=== PATIENT | male | born 1945 | race Caucasian/White ===

== ENCOUNTER → 2016-12-01 | Outpatient (CLI) | payer MEDICARE ==
[~2016-12-01] MED LIST: AMPI500C9 PO; ASPI-999 PO; DOXA1TAB2 PO; LISI1TAB10 PO; LOVA20TA2 PO; METF500T4 PO; METO-272 PO; NITR0.4T SL; OMEP40CA36 PO
--- NOTE | 2016-12-03 07:00 | ECHOCARDIOGRAPHY REPORT ---
DATE OF SERVICE: 12/01/2016 PROCEDURE: ECHOCARDIOGRAM CLINICAL DIAGNOSES: Shortness of breath, coronary artery disease, diabetes type 2. MEASUREMENTS: Left atrium 4.4 Aortic root 3.2 LV diameter, diastolic, 5 IVS thickness, diastolic, 0.9 LVPW thickness, diastolic, 0.8 DESCRIPTION: Two-dimensional echocardiography shows normal global left ventricular systolic function with an ejection fraction of approximately 60%. Aortic, mitral and tricuspid valve leaflets show good leaflet excursion. There is mild to moderate aortic valve sclerosis and calcification. There is no significant pericardial effusion. Doppler imaging shows mild tricuspid regurgitation. Pulmonary artery systolic pressure is estimated to be approximately 45 mmHg. Doppler imaging shows mild mitral regurgitation as well. There is no Doppler evidence of any significant valvular stenosis. There is no evidence of any significant intracardiac shunt on this transthoracic echocardiographic study. The inferior vena cava appears mildly enlarged, but does exhibit inspiratory collapse. CONCLUSIONS: 1. Normal global systolic function with ejection fraction approximately 60%. 2. Mild mitral and tricuspid regurgitation. 3. Aortic valve sclerosis without significant aortic stenosis. 4. Pulmonary artery systolic pressure is estimated to be approximately 45 mmHg. Job ID: [id number] DocumentID: [id number] Dictated Date: 12/02/2016 17:29:39 Motion Picture Photographer Date: 12/02/2016 20:07:33 Dictated By: MRAIANN BURGESS MD, MA, FACP, FACC,
== END ==
LOC: RAD 14:37
PROVIDERS: ATTEND Internal Medicine Cardiovascular Disease
DX: I73.9 Peripheral vascular disease, unspecified (principal); R06.02 Shortness of breath; I25.10 Atherosclerotic heart disease of native coronary artery without angina pectoris; Z72.0 Tobacco use; E11.9 Type 2 diabetes mellitus without complications; E78.4 Other hyperlipidemia; I10 Essential (primary) hypertension
CPT/HCPCS: 93306; 93923

== ENCOUNTER → 2017-04-21 | Outpatient (CLI) | payer MEDICARE ==
[~2017-04-21] MED LIST changes: -METO-272 PO; +METO-370 PO; +RT-ALBUTEROL SULF 2.5 MG/3 ML PRE-MIX VIAL IH ONE; +RT-ALBUTEROL SULF 2.5 MG/3 ML PRE-MIX VIAL ONE
== END ==
LOC: RT 07:54
PROVIDERS: ATTEND Nurse Practitioner Family
DX: R06.02 Shortness of breath (principal); I27.2 Other secondary pulmonary hypertension; F17.200 Nicotine dependence, unspecified, uncomplicated
CPT/HCPCS: 94060; 94640; 94726; 94729

== ENCOUNTER 2017-04-23 20:30 | Outpatient (CLI) | payer MEDICARE ==
[~2017-04-23 20:30] MED LIST changes: +METO-272 PO; -METO-370 PO; -RT-ALBUTEROL SULF 2.5 MG/3 ML PRE-MIX VIAL IH ONE; -RT-ALBUTEROL SULF 2.5 MG/3 ML PRE-MIX VIAL ONE
== END 2017-04-24 05:37 | disposition home or self-care (01) ==
LOC: SLEEP 20:30
PROVIDERS: ATTEND Nurse Practitioner Family
DX: G47.33 Obstructive sleep apnea (adult) (pediatric) (principal); G47.10 Hypersomnia, unspecified; G47.61 Periodic limb movement disorder; I47.9 Paroxysmal tachycardia, unspecified
CPT/HCPCS: 95810

== ENCOUNTER → 2017-08-25 | Outpatient (CLI) | payer MEDICARE ==
[~2017-08-25] MED LIST changes: -METO-272 PO; +METO-370 PO
[2017-08-25 11:20] LABS: ALANINE AMINOTRANSFERASE 27 U/L (0-55); ALKALINE PHOSPHATASE 62 U/L (40-136); BILIRUBIN,TOTAL 0.4 MG/DL (0.1-1.0); BUN/CREATININE RATIO 23; CALCIUM 9.2 MG/DL (8.5-10.1); CARBON DIOXIDE 25 MMOL/L (21-32); CHLORIDE 102 MMOL/L (98-107); CHOLESTEROL 162 MG/DL (< 200); GFR ESTIMATED > 60; GLUCOSE 131 MG/DL (70-105); HDL CHOLESTEROL 37 MG/DL (40-60); POTASSIUM 4.2 MMOL/L (3.6-5.0); SODIUM 138 MMOL/L (135-145); TOTAL PROTEIN 7.2 GM/DL (6.4-8.2); TRIGLYCERIDES 234 MG/DL (<150); VLDL CHOLESTEROL 47 MG/DL (5-40)
== END ==
LOC: LAB 10:39
PROVIDERS: ATTEND Nurse Practitioner Family
DX: I25.10 Atherosclerotic heart disease of native coronary artery without angina pectoris (principal); E78.4 Other hyperlipidemia; I10 Essential (primary) hypertension; I73.89 Other specified peripheral vascular diseases; G47.33 Obstructive sleep apnea (adult) (pediatric)
CPT/HCPCS: 36415; 80053; 80061

== ENCOUNTER → 2017-10-27 | Outpatient (CLI) | payer MEDICARE ==
--- NOTE | 2017-10-27 11:12 | Diagnostic Imaging Report ---
Procedure: Low-dose lung cancer screening. Indication: [id number] smoking history. Findings: Routine images of the thorax were performed using the low-dose lung cancer screening protocol. There are no previous studies available for comparison. There is no parenchymal lung nodule identified. There is a faint patchy alveolar/interstitial infiltrate in the right upper lobe. I suspect this finding is more likely due to chronic pulmonary disease than to pneumonia/atelectasis. Even so, clinical followup is recommended. The heart size is within normal limits. Coronary calcifications are evident. The aorta is not abnormally dilated. There is no obvious mediastinal or hilar adenopathy. The thyroid gland was visualized as unremarkable. The sections through the upper abdomen fail to show any sign of an acute abnormality. The bone windows show no evidence for a fracture or for destructive lesion. Impression: 1. There is no parenchymal lung nodule identified. A followup low-dose lung cancer screening study in one year would be recommended for further study. 2. The vague alveolar/interstitial infiltrate in the right upper lung may well be chronic in nature. The possibility that there is an element of mild acute pneumonia/atelectasis should still be considered. Clinical followup is recommended. 3. There is no acute abnormality identified otherwise. 4. The heart is not enlarged and there are coronary artery calcifications evident. Dictated by: Dictated on workstation # [id number]
== END ==
LOC: RAD 08:54
PROVIDERS: ATTEND Internal Medicine
DX: R91.8 Other nonspecific abnormal finding of lung field (principal); I25.10 Atherosclerotic heart disease of native coronary artery without angina pectoris; F17.210 Nicotine dependence, cigarettes, uncomplicated

== ENCOUNTER 2018-02-16 19:49 | Outpatient (CLI) | payer MEDICARE ==
[~2018-02-16 19:49] MED LIST changes: -METF500T4 PO; +METF500T5 PO
== END 2018-02-17 06:08 | disposition home or self-care (01) ==
LOC: SLEEP 19:49
PROVIDERS: ATTEND Nurse Practitioner Family
DX: G47.33 Obstructive sleep apnea (adult) (pediatric) (principal); G47.50 Parasomnia, unspecified
CPT/HCPCS: 95811

== ENCOUNTER 2018-06-04 20:04 | Outpatient (CLI) | payer MEDICARE ==
[~2018-06-04 20:04] MED LIST changes: +BUPR100T15 PO; +CEPH-507 PO; +CITA20TA12 PO; +HYDR-34 PO; +METF-397 PO; -METF500T5 PO; +MONT10TA21 PO
== END 2018-06-05 06:51 | disposition home or self-care (01) ==
LOC: RAD 20:04
PROVIDERS: ATTEND Nurse Practitioner Family
DX: G47.33 Obstructive sleep apnea (adult) (pediatric) (principal); J30.9 Allergic rhinitis, unspecified; J98.4 Other disorders of lung; Z72.0 Tobacco use; R00.1 Bradycardia, unspecified
CPT/HCPCS: 95811

== ENCOUNTER → 2018-12-20 | Outpatient (CLI) | payer MEDICARE ==
--- NOTE | 2018-12-20 09:27 | Diagnostic Imaging Report ---
INDICATION: 40+ pack year smoking history. Presents for low-dose screening. COMPARISON: 10/27/2017. FINDINGS: A few calcified benign parenchymal granulomata in the left upper lobe anteriorly are present. Some biapical subpleural scarring and heterogeneous zones of air trapping are stable. No new, noncalcified, or suspicious pulmonary nodule is found. No evidence for acute pneumonia. Symmetrical air trapping is chronic. No pneumothorax. There is no pleural fluid. There are no findings of aneurysm or lymphadenopathy at this study. No acute or suspect chest wall pathology. IMPRESSION: Stable chronic and benign findings. LUNG RADS: Category 2. Continued annual low-dose CT followup is recommended. Dictated by: Dictated on workstation # [id number]
== END ==
LOC: RAD 07:55
PROVIDERS: ATTEND Internal Medicine
DX: Z12.2 Encounter for screening for malignant neoplasm of respiratory organs (principal); F17.210 Nicotine dependence, cigarettes, uncomplicated

== ENCOUNTER 2019-08-02 14:00 | Outpatient (CLI) | payer MEDICARE ==
[~2019-08-02] VITALS: Ht 175.3 cm; Wt 100.0 kg
[~2019-08-02 14:00] MED LIST changes: +PRIM250T33 PO
== END 2019-08-02 15:42 | disposition home or self-care (01) ==
LOC: PREOP 14:00
PROVIDERS: ATTEND Surgery
DX: Z01.818 Encounter for other preprocedural examination (principal)

== ENCOUNTER 2019-08-08 12:19 | Day surgery (SDC) | payer MEDICARE, OTHER ==
[~2019-08-08] VITALS: Ht 175.3 cm; Wt 100.0 kg
[~2019-08-08 12:19] MED LIST changes: -LISI1TAB10 PO; +LISI1TAB26 PO; -METO-370 PO; +METO50TA7 PO; +OMEP40CA27 PO; -OMEP40CA36 PO
[2019-08-08] MEDS ORDERED: LACTATED RINGERS 1,000 ML IV ONE (12:22)
[2019-08-08] MEDS ORDERED: LACTATED RINGERS 1,000 ML IV STA (12:28)
[2019-08-08 12:34] VITALS: BP 110/75
[2019-08-08] MEDS ORDERED: PROPOFOL INJECTION 50 ML IV ONE (12:50)
--- NOTE | 2019-08-08 13:19 | Progress Note-Pre Operative ---
Pre-Operative Progress Note H&P Reviewed The H&P was reviewed, patient examined and no changes noted. Date Seen by Provider: Aug 08, 2019 Time Seen by Provider: 13:18 Date H&P Reviewed: Aug 08, 2019 Time H&P Reviewed: 13:18 Pre-Operative Diagnosis: hx polyps, family history colon cancer, change in bowel habits MICHAEL ADKINS DO Aug 08, 2019 13:19
[2019-08-08] MEDS ORDERED: ATROPINE INJ 0.4 MG/ML SDV ONE (13:41)
[2019-08-08] MEDS ORDERED: GLYCOPYRROLATE 0.2 MG/ML (ROBINUL) 2 ML VIAL ONE (13:41)
--- NOTE | 2019-08-08 13:44 | Progress Note-Post Operative ---
Post-Operative Progess Note Surgeon (s)/Fire Investigator (s) Surgeon MICHAEL ADKINS DO Fire Investigator: None Pre-Operative Diagnosis hx polyps, family history colon cancer, change in bowel habits Post-Operative Diagnosis linear ulceration at GE junction, small hiatal hernia., esophagitis, normal colon Procedure & Operative Findings Date of Procedure 08/08/19 Procedure Performed/Findings EGD with biopsies, Colonoscopy Anesthesia Type Per FIRE PILOT Estimated Blood Loss Estimated blood loss (mL): none Specimens/Packing Specimens Removed Biopsy of GE junction and antrum MICHAEL ADKINS DO Aug 08, 2019 13:44
--- NOTE | 2019-08-08 14:24 | Progress Note-Post Operative ---
Post-Operative Progess Note Surgeon (s)/Diesel Powerplant Mechanic Helper (s) Surgeon MICHAEL ADKINS DO Diesel Powerplant Mechanic Helper: None Pre-Operative Diagnosis hx polyps, family history colon cancer, change in bowel habits Post-Operative Diagnosis Anal cys and colon polyps Procedure & Operative Findings Date of Procedure 08/08/19 Procedure Performed/Findings colonoscopy with hot biopsies and anal cyst Anesthesia Type per DELI MANAGER Estimated Blood Loss Estimated blood loss (mL): none Specimens/Packing Specimens Removed Ascending colon polyp x 1 Sigmoid colon polyp x 1 MICHAEL ADKINS DO Aug 08, 2019 14:24
[2019-08-08 14:25] VITALS: BP 114/57
--- NOTE | 2019-08-08 14:25 | Discharge Inst-Simple/Standard ---
Discharge Inst-Standard Patient Instructions/Follow Up Plan of Care/Instructions/FU: 2 weeks Diana Activity as Tolerated: Yes Discharge Diet: Regular Diet MICHAEL ADKINS DO Aug 08, 2019 14:25
[2019-08-08 14:30] VITALS: BP 107/57
--- NOTE | 2019-08-08 14:50 | Anesthesia-General Post-Op ---
MAC Patient Condition Mental Status/LOC: Same as Preop Cardiovascular: Satisfactory Nausea/Vomiting: Absent Respiratory: Satisfactory Pain: Controlled Complications: Absent Post Op Complications Complications None Follow Up Care/Instructions Patient Instructions None needed. Anesthesiology Discharge Order Discharge Order Patient was seen after the procedure and he was doing well, no complaints, stable vital signs, no apparent adverse anesthesia problems. SYDNEY PERKINS DO Aug 08, 2019 14:50
[2019-08-08 14:55] VITALS: BP 131/67
[2019-08-08 15:10] VITALS: BP 131/67
--- NOTE | 2019-08-08 22:22 | OPERATIVE REPORT ---
DATE OF SERVICE: 08/08/2019 PREOPERATIVE DIAGNOSES: History of polyps, family history of colon cancer, change in bowel habits. POSTOPERATIVE DIAGNOSES: Anal cyst and colon polyps. PROCEDURE: Colonoscopy with hot biopsy polypectomy x2. SURGEON: Michael Ortiz DO ANESTHESIA: Per MAKEUP ARTIST. ESTIMATED BLOOD LOSS: None. COMPLICATIONS: None. INDICATIONS: The patient is a 73-year-old male with history of polyps, family history of colon cancer and change in bowel habits. He understands risks and benefits of procedure and wished to proceed with procedure. Consent was signed in the chart. DESCRIPTION OF PROCEDURE: The patient was taken to the endoscopy suite, placed in left lateral recumbent position. Timeout was performed. Digital rectal exam was performed on the right posterior aspect and the anal cyst feeling firm, well circumscribed lesion present. No other palpable polyps, masses or ulcerations. Scope was inserted in the rectum, advanced all the way to cecum with minimal difficulty. Prep was adequate. Scope was then slowly retracted back. There were no polyps, masses or ulcerations within the cecum. In the ascending colon, a small polyp was present, which hot biopsy polypectomy was performed. Scope was then continued slowly retracted back. There were no polyps, masses or ulcerations within the remainder of the ascending, transverse and descending colon and sigmoid colon, a small polyp was present, which hot biopsy polypectomy was performed. Scope was continuously retracted back into the rectum, where it was also retroflexed noting no other pathology. The scope was returned to its normal position, slowly withdrawn until completely removed, noting no other pathology. The patient tolerated procedure well without any complications. He was taken to recovery room in stable condition. RECOMMENDATIONS: The patient repeat colonoscopy in 5 years of risks versus benefits are appropriate. We consider excision of the anal cyst if he wishes to or continue to monitor. If he has any change in condition, he should be seen at that time. The patient will follow up in the office in two to three weeks to discuss pathology results and findings. Job ID: [id number] DocumentID: [id number] Dictated Date: 08/08/2019 14:24:12 Office Machine Servicer Date: 08/08/2019 22:21:41 Dictated By: MICHAEL ORTIZ DO
== END 2019-08-08 15:10 | disposition home or self-care (01) ==
LOC: ENDO 12:19
PROVIDERS: ATTEND Surgery
DX: D12.2 Benign neoplasm of ascending colon (principal); K63.5 Polyp of colon; K62.89 Other specified diseases of anus and rectum; K21.9 Gastro-esophageal reflux disease without esophagitis; E78.5 Hyperlipidemia, unspecified; G47.33 Obstructive sleep apnea (adult) (pediatric); J44.9 Chronic obstructive pulmonary disease, unspecified; I11.9 Hypertensive heart disease without heart failure; I20.9 Angina pectoris, unspecified; I73.9 Peripheral vascular disease, unspecified; E11.9 Type 2 diabetes mellitus without complications; E78.00 Pure hypercholesterolemia, unspecified; G47.10 Hypersomnia, unspecified; Z83.3 Family history of diabetes mellitus; E66.9 Obesity, unspecified; F32.9 Major depressive disorder, single episode, unspecified; F17.210 Nicotine dependence, cigarettes, uncomplicated; Z68.32 Body mass index [BMI] 32.0-32.9, adult; Z79.84 Long term (current) use of oral hypoglycemic drugs; Z99.89 Dependence on other enabling machines and devices; Z79.899 Other long term (current) drug therapy; Z79.82 Long term (current) use of aspirin; Z86.010 Personal history of colon polyps; Z80.0 Family history of malignant neoplasm of digestive organs; Z82.49 Family history of ischemic heart disease and other diseases of the circulatory system
CPT/HCPCS: 82962; 88305

== ENCOUNTER → 2021-01-09 | Outpatient (CLI) | payer MEDICARE ==
--- NOTE | 2021-01-09 19:04 | Diagnostic Imaging Report ---
CT CHEST SCREENING WO TECHNIQUE: Low-dose unenhanced CT of the chest was performed according to the screening protocol. Coronal MIP and sagittal MPR reformats are created. Automatic exposure controls were utilized to keep dose as low as reasonably achievable. INDICATION: [id number] history of smoking. Current smoker. COMPARISON: Low-dose CT chest of 12/20/2018 FINDINGS: Pulmonary findings: No endoluminal nodule within the trachea. Paraseptal emphysema is unchanged. No pulmonary mass or consolidation. No suspicious pulmonary nodules have developed. Extrapulmonary findings: No axillary or mediastinal lymphadenopathy. No pericardial or pleural effusion. Normal caliber thoracic aorta. Mild coronary artery calcifications are unchanged. Calcified hilar lymph nodes are stable and due to old granulomatous infection. IMPRESSION: 1. No change to indicate clinically active lung cancer. Lung-RADS category: 1 - Negative Recommendations: Continued annual screening with low-dose CT in 12 months. Dictated by: Dictated on workstation # [id number]
== END ==
LOC: RAD 13:45
PROVIDERS: ATTEND Internal Medicine
DX: Z12.2 Encounter for screening for malignant neoplasm of respiratory organs (principal); F17.210 Nicotine dependence, cigarettes, uncomplicated
CPT/HCPCS: 71271

== ENCOUNTER → 2022-01-02 | Outpatient (CLI) | payer MEDICARE ==
[~2022-01-02] MED LIST changes: -LISI1TAB26 PO; +LISI1TAB48 PO; -OMEP40CA27 PO; +OMEP40CA6 PO
== END ==
LOC: CARD 13:30
PROVIDERS: ATTEND Nurse Practitioner Family
DX: I08.3 Combined rheumatic disorders of mitral, aortic and tricuspid valves (principal)
CPT/HCPCS: 93306